=== PATIENT | male | born 1985 | race Caucasian/White ===

== ENCOUNTER 2022-04-06 04:04 | Emergency (ER) | payer MEDICAID ==
[~2022-04-06] VITALS: Ht 190.5 cm; Wt 79.5 kg
[~2022-04-06 04:04] MED LIST: ALBU8HFA PO; PRED50TA PO
[2022-04-06] MEDS ORDERED: proCHLORperazine 10 MG/2 ml inj IV ONE (04:25)
[2022-04-06] MEDS ORDERED: morphine 4 MG/ML inj SYRINge IV ONE (04:25)
[2022-04-06] MEDS ORDERED: LIDOcaine Viscous 15ml cup ONE (07:16)
[2022-04-06] MEDS ORDERED: MIDAZolam 1 MG/ML 5ML VIAL ONE (07:16)
[2022-04-06] MEDS ORDERED: fentaNYL/PF 50MCG/1 ML 2ML syringe ONE (07:16)
[2022-04-06 07:20] VITALS: BP 110/70
--- NOTE | 2022-04-06 07:32 | NUR ---
Pt to EGD
--- NOTE | 2022-04-06 07:54 | NUR ---
Pt to in GI lab
[2022-04-06 08:20] VITALS: BP 82/45
[2022-04-06 08:30] VITALS: BP 82/45
[2022-04-06 08:40] VITALS: BP 84/41
[2022-04-06 08:50] VITALS: BP 83/49
--- NOTE | 2022-04-06 09:03 | NUR ---
Pt back from GI lab BP a little soft. Pt got 6mg versed and 100mg Fentanyl
[2022-04-06] MEDS ORDERED: albuterol 2.5 MG/3 ML nebule NEB ONE (12:00)
--- NOTE | 2022-04-06 12:01 | NUR ---
Pt woke up yelling for his inhaler. came in and assessed pt. Will order RT TX.
[2022-04-06] MEDS ORDERED: ESOM20CA PO (12:38)
[2022-04-06 14:12] VITALS: BP 111/70
== END 2022-04-06 15:08 | disposition home or self-care (01) ==
LOC: ER 04:05
DX: T18.128A Food in esophagus causing other injury, initial encounter (principal); J45.909 Unspecified asthma, uncomplicated; Z72.89 Other problems related to lifestyle; Z79.899 Other long term (current) drug therapy; X58.XXXA Exposure to other specified factors, initial encounter; Y93.89 Activity, other specified; Y92.89 Other specified places as the place of occurrence of the external cause; Y99.8 Other external cause status
CPT/HCPCS: 43247; 94640; 96374; 96375; 99152; 99153; 99285; C1773; J0780; J2250; J2270; J3010; J7030; Z7512; 94760; A4620

== ENCOUNTER 2022-10-05 07:58 | Emergency (ER) | payer MEDICAID ==
[~2022-10-05] VITALS: Ht 188 cm; Wt 78.0 kg
[~2022-10-05 07:58] MED LIST changes: +ESOM20CA PO
[2022-10-05 08:00] VITALS: BP 107/57
[2022-10-05] MEDS ORDERED: ketorolac trometh inj. 60 MG/2 ML VIAL IM ONE (09:15)
[2022-10-05 09:55] LABS: BASOPHILS % (AUTO) 0.1 % (0-1); EOSINOPHILS # (AUTO) 0.1 X10'3 (0-0.9); HEMATOCRIT 45.3 % (42.0-52.0); HEMOGLOBIN 15.6 g/dl (14.0-17.9); LYMPHOCYTES # (AUTO) 0.9 X10'3 (1.1-4.8); LYMPHOCYTES % (AUTO) 11.1 % (21-51); MEAN CORPUSCULAR HEMOGLOBIN 28.5 PG (27.0-31.0); MEAN CORPUSCULAR HGB CONC 34.4 g/dL (33.0-36.5); MEAN PLATELET VOLUME 9.5 FL (7.4-10.4); NEUTROPHILS # (AUTO) 6.1 X10'3 (1.8-7.7); NEUTROPHILS % (AUTO) 75.8 % (42-75); PLATELET COUNT 149 X10'3 (140-440); RED BLOOD COUNT 5.46 X10'6 (4.70-6.10); RED CELL DISTRIBUTION WIDTH 12.9 % (11.5-14.5)
[2022-10-05 10:00] LABS: ALANINE AMINOTRANSFERASE 45 U/L (12-78); ALBUMIN 3.6 G/DL (3.4-5.0); ALBUMIN/GLOBULIN RATIO 0.8 (1.1-1.5); ALKALINE PHOSPHATASE 78 IU/L (46-116); ANION GAP 7 (8-16); ASPARTATE AMINO TRANSFERASE 37 U/L (10-37); BILIRUBIN,TOTAL 0.7 MG/DL (0.1-1.0); BLOOD UREA NITROGEN 14 MG/DL (7-18); BUN/CREATININE RATIO 13.5 (10.0-20.0); CALCIUM 9.1 MG/DL (8.5-10.1); CHLORIDE 98 MMOL/L (99-107); CREATININE 1.04 MG/DL (0.60-1.10); GLUCOSE 131 MG/DL (70-104); POTASSIUM 4.7 MMOL/L (3.5-5.1); SODIUM 133 MMOL/L (135-145); TOTAL CARBON DIOXIDE 27.9 MMOL/L (24-32); TOTAL PROTEIN 7.9 G/DL (6.4-8.2); eGFR 80 ML/MIN
[2022-10-05] MEDS ORDERED: IBUP-1985 PO (11:01)
== END 2022-10-05 11:27 | disposition home or self-care (01) ==
LOC: ER 07:58
DX: M54.41 Lumbago with sciatica, right side (principal); R05.9 Cough, unspecified; J45.909 Unspecified asthma, uncomplicated; Z72.89 Other problems related to lifestyle; Z79.899 Other long term (current) drug therapy
CPT/HCPCS: 36415; 72080; 80053; 85025; 96372; 99284; J1885